=== PATIENT | female | born 1950 | race Caucasian/White ===

== ENCOUNTER → 2017-01-13 | Outpatient (CLI) | payer OTHER | LOC: CIMAGING 09:49 | DX: Z12.31 Encounter for screening mammogram for malignant neoplasm of breast (principal) | CPT/HCPCS: G0202 ==

== ENCOUNTER → 2017-01-19 | Outpatient (CLI) | payer OTHER | LOC: BRMIMAGING 14:48 | PROVIDERS: ATTEND Internal Medicine | DX: Z13.820 Encounter for screening for osteoporosis (principal); E20.9 Hypoparathyroidism, unspecified; C73 Malignant neoplasm of thyroid gland; Z78.0 Asymptomatic menopausal state; Z82.62 Family history of osteoporosis ==

== ENCOUNTER 2017-11-24 12:27 | Emergency (ER) | payer OTHER ==
[2017-11-24] MEDS ORDERED: ASPIRIN 81 MG CHEWABLE TAB PO ONE (12:40)
--- NOTE | 2017-11-24 12:55 | CPEKG ---
Heart Rate: 76 RR Interval: 789 P-R Interval: 156 QRSD Interval: 112 QT Interval: 424 QTC Interval: 477 P Redfield: -46 QRS Redfield: -24 T Wave Redfield: 37 EKG Severity - ABNORMAL ECG - EKG Impression: SINUS OR ECTOPIC ATRIAL RHYTHM EKG Impression: INCOMPLETE RBBB AND LAFB Electronically Signed By: Riley Gastelum 24-Nov-2017 15:35:59
[2017-11-24] MEDS ORDERED: HYOSCYAMINE SULFATE 0.125 MG TAB PO ONE (13:04)
[2017-11-24] MEDS ORDERED: MAG HYDROX/AL HYDROX/SIMETH 30 ML UDCUP PO ONE (13:04)
[2017-11-24 13:11] LABS: PLATELET COUNT 185 10^3/uL (150-400)
--- NOTE | 2017-11-24 14:35 | EDPHY ---
H & P Stated Complaint: palpitations since 1130 this am; pressure Time Seen by Provider: 11/24/17 12:40 HPI/ROS: This patient complains of chest discomfort. She explains that at 11:30 a.m. While at rest at work keyboard she had abrupt feeling of fleeting tightness in her chest that she had an experience before accompanied by a gurgling in her stomach. She states that it felt like a spasm or an extra heartbeat. She states that the peak intensity was 6/10 in this episode and that since then she has felt intermittent fleeting chest pains that do not last for more than a 2nd or 2 at a time. Nervous about a potential heart problem, she came in for evaluation by private vehicle for the symptoms. She does recall having these symptoms in the past. She does report increased belching recently in some intermittent GERD symptoms associated with her current symptoms. ROS: Constitutional: No fevers or chills. HEENT: No URI symptoms or other complaints pulmonary: No shortness of breath. She reports that she recently had a cough attributed to a cold that resolved over the past few days. No lingering cough. Cardiovascular: No lightheadedness. No leg swelling. GI: No nausea. Normal bowel movements. Positive increase in belching as noted in HPI. : No complaints integumentary: No diaphoresis or rash. No pallor. Neuro: No complaints. 10 point ROS is otherwise negative. Source: Patient Exam Limitations: No limitations - Personal History Current Tetanus/Diphtheria Vaccine: Yes - Medical/Surgical History Hx Asthma: No Hx Chronic Respiratory Disease: No Hx Diabetes: No Hx Cardiac Disease: No Hx Renal Disease: No Hx Cirrhosis: No Hx Alcoholism: No Hx HIV/AIDS: No Hx Splenectomy or Spleen Trauma: No Other PMH: HTN. Thyroid/parathyroid ectomy. oopherectomy. back surgery - Family History Significant Family History: No pertinent family hx - Social History Smoking Status: Former smoker Alcohol Use: Rarely Drug Use: None - Physical Exam Exam: General Appearance: Alert, no distress. Eyes: Pupils equal and round no pallor or injection. ENT, Mouth: Mucous membranes moist. Respiratory: There are no retractions, lungs are clear to auscultation. Cardiovascular: Regular rate and rhythm. No murmur gallop rub. No chest wall tenderness. Gastrointestinal: Abdomen is soft and nontender, no masses, bowel sounds normal. Neurological: GCS 15 Skin: Warm and dry, no rashes. Musculoskeletal: Neck is supple nontender. Extremities are symmetrical, full range of motion. Psychiatric: Mood and affect normal DIFFERENTIAL DIAGNOSIS: After history and physical exam differential diagnosis was considered for GERD with esophageal spasm, myocardial ischemic disease, pneumothorax, pneumonia, aortic aneurysm, aortic dissection Constitutional: Initial Vital Signs Temperature (C) 37 C 11/24/17 12:34 Heart Rate 84 11/24/17 12:34 Respiratory Rate 20 11/24/17 12:34 Blood Pressure 175/103 H 11/24/17 12:34 O2 Sat (%) 96 11/24/17 12:34 O2 Delivery Mode Room Air Allergies/Adverse Reactions: banana [Banana] Allergy (Verified 11/24/17 12:38) Vomiting Home Medications: Medication Instructions Recorded Calcitriol (*) 11/24/17 Hyoscyamine Sulfate [Levsin, 0.125 - 0.25 mg SL Q6 PRN #20 tab 11/24/17 Hyomax-Sl 0.125 mg (*)] Levothyroxine 11/24/17 Lexapro 11/24/17 Lisinopril 11/24/17 Pantoprazole Sodium [Protonix 40mg 40 mg PO DAILY #30 tab 11/24/17 (RX)] traZODone 11/24/17 Medical Decision Making - Diagnostics EKG Interpretation: 12 lead EKG performed at 12:53 p.m. Reveals sinus rhythm at 73 Intervals: P R of 156, QRS of 112, QTC of 477 [place]: P of -46, QRS of -24, T of 37 degrees Overall assessment sinus rhythm with incomplete right bundle-branch block and left anterior fascicular block Imaging Results: Two view chest x-ray: Normal by my interpretation Imaging: I viewed and interpreted images myself ED Course/Re-evaluation: IV, monitor, aspirin p.o. Maalox and Levsin with improvement in her symptoms. Studies: CBC is normal, troponin is normal, CMP & TSH normal Discussion: I suspect this patient's symptoms are attributable to GERD with some esophageal spasm. I counseled regarding this. Her symptoms improved with antacids Levsin here. Will plan to treat her with the same as an outpatient with follow up with primary care physician with Cardiology as an outpatient. She understands the need to return emergency department should she develop worsening symptoms despite the treatment plan. - Data Points Laboratory Results: Laboratory Results 11/24/17 13:08 11/24/17 13:08 Medications Given: Discontinued Medications Al Hydroxide/Mg Hydroxide (Maalox Susp) 30 ml PO EDNOW ONE Stop: 11/24/17 13:05 Last Admin: 11/24/17 13:30 Dose: 30 ml Aspirin (Aspirin) 324 mg PO EDNOW ONE Stop: 11/24/17 12:41 Last Admin: 11/24/17 12:48 Dose: 324 mg Hyoscyamine Sulfate (Levsin, Hyomax-Sl) 0.25 mg PO EDNOW ONE Stop: 11/24/17 13:05 Last Admin: 11/24/17 13:30 Dose: 0.25 mg Departure - Departure Disposition: Home, Routine, Self-Care Clinical Impression: Atypical chest pain, GERD (gastroesophageal reflux disease) Condition: Good Instructions: Chest Pain (ED), Diet for Stomach Ulcers and Gastritis (ED), Gastroesophageal Reflux Disease (ED) Additional Instructions: Diagnosis: 1. Atypical chest pain 2. Gastroesophageal reflux-likely with esophageal spasm Plan: Start Protonix acid carmen Maalox in addition if needed. Protonix will take a day or 2 to work. Levsin if needed for chest discomfort. Light diet to feel improved Follow up with primary care physician for recheck Also recommend follow up with cardiology-Dr. Thomas for further workup. Return for any significant worsening of her symptoms despite the treatment plan. Referrals: Pili Miles MD [Primary Care Provider] - As per Instructions Raina Thomas MD [Medical Doctor] - As per Instructions Prescriptions: Hyoscyamine Sulfate [Levsin, Hyomax-Sl 0.125 mg (*)] 0.125 - 0.25 mg SL Q6 PRN # 20 tab PRN Reason: abdominal cramping Pantoprazole Sodium [Protonix 40mg (RX)] 40 mg PO DAILY #30 tab
[2017-11-24 14:52] VITALS: BP 175/100
== END 2017-11-24 14:43 | disposition home or self-care (01) ==
LOC: CED 12:27
DX: R07.89 Other chest pain (principal); K21.9 Gastro-esophageal reflux disease without esophagitis; I10 Essential (primary) hypertension; Z87.891 Personal history of nicotine dependence
CPT/HCPCS: 71046-PO; 80048-PO; 84443-PO; 84484-PO

== ENCOUNTER → 2018-02-17 | Outpatient (CLI) | payer OTHER | LOC: CIMAGING 14:54 | PROVIDERS: ATTEND Internal Medicine | DX: Z12.31 Encounter for screening mammogram for malignant neoplasm of breast (principal) ==

== ENCOUNTER 2018-11-06 09:35 | Observation (INO) | payer OTHER ==
[2018-11-06] MEDS ORDERED: NS 1,000 ML IV ONE (10:19)
--- NOTE | 2018-11-06 10:26 | EDPHY ---
HPI/HX/ROS/PE/MDM Narrative: CHIEF COMPLAINT: Shortness of breath, cough HPI: The patient is a 68-year-old female with a history of hypertension. She states that she has felt "lousy" over the last week with cough productive of yellow-green sputum, body aches, sore throat and shortness of breath. This got acutely worse yesterday. She states that she checked her heart rate a number of times yesterday and found to be 120-130 beats per minute range. She denies measured fever. She denies chest pain. She did receive a flu shot this year. She states of a neighbor was recently diagnosed with strep throat. REVIEW OF SYSTEMS: Aside from elements discussed in the HPI, a comprehensive 10-point review of systems was reviewed and is negative. PMH: Includes high blood pressure, no history of coronary disease. SOCIAL HISTORY: Denies alcohol or drug abuse. PHYSICAL EXAM: General:Patient is alert, in no acute distress. She is well-appearing. ENT:Eyes are normal to inspection. ENT inspection normal. Neck: Normal inspection. Full range of motion. Respiratory:No respiratory distress. Breath sounds normal bilaterally. Cardiovascular: Regular rate and rhythm. Strong peripheral pulses. Normal cap refill. Abdomen:The abdomen is nontender to palpation. There are no peritoneal signs. There are normal bowel sounds. Back: Normal to inspection. No tenderness to palpation. Skin: Normal color. No rash. Warm and dry. Extremities: Normal appearance. Full range of motion. Neuro: Oriented x3. Normal motor function. Normal sensory function. MDM: This patient presents primarily with hypoxia in setting of viral-like symptoms. Her CXR is negative for PNA and her HR has improved. I do not think she has severe sepsis or septic shock. Patient remained hypoxic however, and as such admission is indicated. General Time Seen by Provider: 11/06/18 10:17 Initial Vital Signs: Initial Vital Signs Temperature (C) 37.0 C 11/06/18 09:38 Heart Rate 112 H 11/06/18 09:38 Respiratory Rate 20 11/06/18 09:38 Blood Pressure 168/100 H 11/06/18 09:38 O2 Sat (%) 88 L 11/06/18 09:38 O2 Delivery Mode Room Air O2 (L/minute) 2 Allergies/Adverse Reactions: banana [Banana] Allergy (Verified 11/24/17 12:38) Vomiting Home Medications: Medication Instructions Recorded Calcitriol 0.5 mcg PO DAILY@14 11/24/17 Escitalopram Oxalate [Lexapro] 20 mg PO DAILY@11/24/17 Levothyroxine [Synthroid 112 mcg 112 mcg PO DAILY06 11/24/17 (*)] Lisinopril [Zestril 20 mg (*)] 20 mg PO DAILY 11/24/17 traZODone [traZODONE 50MG (*)] 50 mg PO HS PRN 11/24/17 Calcium Carbonate [Oyster Shell 500 mg PO DAILY@11/06/18 Calcium 500 mg (*)] Herbals/Supplements -Info Only 1 ea PO DAILY 11/06/18 Multivitamins [Multivitamin (*)] 1 each PO DAILY 11/06/18 Departure - Departure Disposition: [facility] Acute Condition: Good
[2018-11-06 10:46] LABS: PLATELET COUNT 155 10^3/uL (150-400)
--- NOTE | 2018-11-06 13:23 | ASMTCMCOM ---
CM Note CM Note Notes: Pt seen by request for possibility of in home oxygen. After speaking with RT Faith, pt would have to pay out of pocket for in home oxygen. Pt. 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 She did not want to stay because he has no friends or family that would be able to provide care for her or her two dogs. Pt indicated that she was recently approved for a cpap and recognized that she needs to address the issue so she can feel better. She called her son to see if he could call his prior care provider to check in on him and the dogs. She expressed concern about length of stay for OBS and what will happen to her son if she needs to stay longer. In home oxygen may still be needed. DC needs TBD CM to continue to follow. Date Signed: 11/06/2018 01:23 PM Electronically Signed By:Oscar Mays LCSW
[2018-11-06] MEDS ORDERED: ACETAMINOPHEN 325 MG TAB PO PRN (14:02)
[2018-11-06] MEDS ORDERED: ONDANSETRON 4 MG/2 ML VIAL IVP PRN (14:02)
[2018-11-06] MEDS ORDERED: ONDANSETRON DISINTEGRATING 4 MG TAB PO PRN (14:02)
[2018-11-06] MEDS ORDERED: IBUPROFEN 200 MG TAB PO PRN (14:02)
[2018-11-06] MEDS ORDERED: ALBUTEROL 3 ML DEYVIAL IH PRN (14:02)
[2018-11-06] MEDS ORDERED: traZODone 50 MG TAB PO PRN (14:04)
--- NOTE | 2018-11-06 14:04 | PDGENHP ---
History and Physical - Chief Complaint shortness of breath, fast heart rate - History of Present Illness 68yo F with htn presents with 4-5 days of shortness of breath, cough productive of white sputum, fatigue. She had to call off work 3 times last weak. No fevers/ chills. She has been wheezing at home. She noticed that her HR was as high as 133 bpm at home yesterday. This concerned her. Her HR was still high today and she was having trouble catching her breath so she came in. Non-smoker. Some of her work colleagues have been sick. No chest pain or pleuritic pain. She did get a flu shot. In the ED, she was found to have O2 sats in the low 80s on room air. This improved with 2L supplemental oxygen. She is being admitted for management of hypoxia. History Information - Allergies/Home Medication List Allergies/Adverse Reactions: banana [Banana] Allergy (Verified 11/24/17 12:38) Vomiting Home Medications: Calcitriol 0.5 mcg PO DAILY@11/24/17 [Last Taken 11/05/18] Escitalopram Oxalate [Lexapro] 20 mg PO DAILY@11/24/17 [Last Taken 11/05/18] Levothyroxine [Synthroid 112 mcg (*)] 112 mcg PO DAILY06 11/24/17 [Last Taken ] Lisinopril [Zestril 20 mg (*)] 20 mg PO DAILY 11/24/17 [Last Taken 11/06/18] traZODone [traZODONE 50MG (*)] 50 mg PO HS PRN 11/24/17 [Last Taken Unknown] Calcium Carbonate [Oyster Shell Calcium 500 mg (*)] 500 mg PO DAILY@11/06/18 [Last Taken 11/05/18] Herbals/Supplements -Info Only 1 ea PO DAILY 11/06/18 [Last Taken Unknown] Multivitamins [Multivitamin (*)] 1 each PO DAILY 11/06/18 [Last Taken Unknown] I have personally reviewed and updated: family history, medical history, social history, surgical history - Past Medical History Additional medical history: hypertension, thyroid cancer, iatrogenic hypothyroidism and hypoparathyroidism, depression - Surgical History Additional surgical history: thyroidectomy and parathyroidectomy, ovarian cyst removal - Family History Positive for: non-pertinent - Social History Smoking Status: Former smoker Review of Systems Review of Systems: ROS: 10pt was reviewed & negative except for what was stated in HPI & below Physical Exam Physical Exam: Temp Pulse Resp BP Pulse Ox 37.0 C 88 18 136/89 H 94 11/06/18 09:38 11/06/18 13:46 11/06/18 13:46 11/06/18 13:46 11/06/18 13:46 O2 (L/minute) 2 Constitutional: no apparent distress, appears nourished, not in pain Eyes: PERRL, anicteric sclera, EOMI Ears, Nose, Mouth, Throat: moist mucous membranes, hearing normal, ears appear normal, no oral mucosal ulcers Cardiovascular: regular rate and rhythym, no murmur, rub, or gallop, No edema Respiratory: no respiratory distress, reduced air movement, No expiratory wheeze , No rhonchi Gastrointestinal: normoactive bowel sounds, soft, non-tender abdomen, no palpable masses Genitourinary: no bladder fullness, no bladder tenderness Skin: warm, normal color, no rashes or abrasions, no fluctuance, no induration, No mottled Musculoskeletal: full muscle strength, no muscle tenderness, normal joint ROM, no joint effusions Neurologic: AAOx3 Psychiatric: interacting appropriately Lab Data & Imaging Review 11/06/18 10:30 11/06/18 10:30 WBC 14.57 10^3/uL (3.80-9.50) H 11/06/18 10:30 RBC 4.42 10^6/uL (4.18-5.33) 11/06/18 10:30 Hgb 15.0 g/dL (12.6-16.3) 11/06/18 10:30 Hct 44.6 % (38.0-47.0) 11/06/18 10:30 MCV 100.9 fL (81.5-99.8) H 11/06/18 10:30 MCH 33.9 pg (27.9-34.1) 11/06/18 10:30 MCHC 33.6 g/dL (32.4-36.7) 11/06/18 10:30 RDW 13.1 % (11.5-15.2) 11/06/18 10:30 Plt Count 155 10^3/uL (150-400) 11/06/18 10:30 MPV 10.6 fL (8.7-11.7) 11/06/18 10:30 Neut % (Auto) 91.3 % (39.3-74.2) H 11/06/18 10:30 Lymph % (Auto) 3.6 % (15.0-45.0) L 11/06/18 10:30 [place] % (Auto) 3.6 % (4.5-13.0) L 11/06/18 10:30 Eos % (Auto) 0.3 % (0.6-7.6) L 11/06/18 10:30 Baso % (Auto) 0.1 % (0.3-1.7) L 11/06/18 10:30 Nucleat RBC Rel Count 0.0 % (0.0-0.2) 11/06/18 10:30 Absolute Neuts (auto) 13.30 10^3/uL (1.70-6.50) H 11/06/18 10:30 Absolute Lymphs (auto) 0.52 10^3/uL (1.00-3.00) L 11/06/18 10:30 Absolute Monos (auto) 0.52 10^3/uL (0.30-0.80) 11/06/18 10:30 Absolute Eos (auto) 0.04 10^3/uL (0.03-0.40) 11/06/18 10:30 Absolute Basos (auto) 0.01 10^3/uL (0.02-0.10) L 11/06/18 10:30 Absolute Nucleated RBC 0.00 10^3/uL (0-0.01) 11/06/18 10:30 Immature Gran % 1.1 % (0.0-1.1) 11/06/18 10:30 Immature Gran # 0.16 10^3/uL (0.00-0.10) H 11/06/18 10:30 RBC/WBC/PLT Morphology TNP 11/06/18 10:30 Platelet Estimate TNP 11/06/18 10:30 VBG Lactic Acid 1.3 mmol/L (0.7-2.1) 11/06/18 10:30 Sodium 137 mEq/L (135-145) 11/06/18 10:30 Potassium 3.6 mEq/L (3.5-5.2) 11/06/18 10:30 Chloride 103 mEq/L (97-110) 11/06/18 10:30 Carbon Dioxide 22 mEq/l (22-31) 11/06/18 10:30 Anion Gap 12 mEq/L (6-14) 11/06/18 10:30 BUN 9 mg/dL (7-23) 11/06/18 10:30 Creatinine 0.6 mg/dL (0.6-1.0) 11/06/18 10:30 Estimated GFR > 60 11/06/18 10:30 Glucose 115 mg/dL (70-100) H 11/06/18 10:30 Calcium 8.5 mg/dL (8.5-10.4) 11/06/18 10:30 Nasal Influenza A PCR NEGATIVE FOR FLU A (NEGATIVE) 11/06/18 10:10 Nasal Influenza B PCR NEGATIVE FOR FLU B (NEGATIVE) 11/06/18 10:10 RSV (PCR) NEGATIVE FOR RSV (NEGATIVE) 11/06/18 10:10 Group A Strep Screen NEGATIVE (NEGATIVE) 11/06/18 10:10 Interpretation: CXR: normal heart size, no focal infiltrate or effusion, bronchial wall thickening, no pulmonary vascular congestion Assessment & Plan Assessment: 68yo F with htn presents with 4-5 days of shortness of breath, cough productive of white sputum, fatigue found to be hypoxic. Plan: #Acute hypoxia: Suspect has viral bronchitis. Flu and RSV negative. - Schedule duonebs, cough suppressants - Wean O2 as able - If not improving, consider CTA chest to eval for PE #Intermittent tachycardia: Likely driven by hypoxia. No longer tachycardic here. #Leukocytosis: Reactive from viral process. She is not septic. #Macrocytosis: She is not anemic. Check B12, folate levels. #Hypoparathyroidism: Calcium level wnl. Continue calcitriol. #Hypothyroidism: Continue LT4 replacement. #HTN: BP mildly elevated on admit, now normal. Continue home meds. VTE ppx: SCDs Code: Full Diet: regular Dispo: Admit under observation
[2018-11-06] MEDS ORDERED: guaiFENesin 600 MG TAB.ER PO PRN (14:56)
[2018-11-06] MEDS ORDERED: BENZONATATE 100 MG CAP PO PRN (14:56)
[2018-11-06] MEDS: ESCITALOPRAM OXALATE 10 MG TAB PO SCH (15:56)
[2018-11-06] MEDS: CALCIUM CARBONATE 500 MG TAB PO SCH (15:56)
[2018-11-06] MEDS: CALCITRIOL 0.25 MCG CAP PO SCH (15:56)
[2018-11-06] MEDS: IPRATROPIUM/ALBUTEROL 3 ML DEYVIAL IH SCH ×2 (16:23→22:52)
[2018-11-07] MEDS: IPRATROPIUM/ALBUTEROL 3 ML DEYVIAL IH SCH ×3 (00:06→11:43)
[2018-11-07 05:16] LABS: PLATELET COUNT 139 10^3/uL (150-400)
[2018-11-07] MEDS ORDERED: LEVOTHYROXINE 112 MCG TAB PO SCH (06:00)
--- NOTE | 2018-11-07 08:47 | PDHOMEO2F ---
Home Oxygen Face to Face Home Orders: I certify that a physician or a nurse practitioner or physician's music assistant has had a [id number] encounter with this patient on the date of this order due to the diagnosis listed, which relates to the primary reason the patient requires home oxygen. Alternative treatments have been tried, or considered, and deemed ineffective. It is anticipated that supplemental oxygen will result in improvement with treatment. Home oxygen qualifying diagnosis: respiratory failure with hypoxia SpO2 on room air (%): 82 Frequency of home oxygen needed: continuous Home oxygen liters per minute: 2 Home oxygen delivery device: nasal cannula Concentrator: Yes E-tanks for mobility and back up: Yes If ordering portable O2, is the patient mobile in the home?: Yes I certify that, based on these findings, the home oxygen is medically necessary for this patient for the following length of time. Length of time home oxygen needed: 1 month
[2018-11-07] MEDS ORDERED: LISINOPRIL 20 MG TAB PO SCH (09:00)
[2018-11-07] MEDS ORDERED: IOPAMIDOL (ISOVUE 370) 100 ML BTL IV ONE (12:21)
[2018-11-07 12:34] VITALS: BP 149/97
[2018-11-07] MEDS: CALCITRIOL 0.25 MCG CAP PO SCH (14:00)
[2018-11-07] MEDS: ESCITALOPRAM OXALATE 10 MG TAB PO SCH (14:00)
[2018-11-07] MEDS: CALCIUM CARBONATE 500 MG TAB PO SCH (14:00)
--- NOTE | 2018-11-07 14:41 | PDDCSUM ---
Discharge Summary Discharge Summary: Date of Admission: 11/06/2018 Date of Discharge: 11/07/2018 Studies: CXR, CTA chest Discharge Diagnoses: 1. Acute hypoxia 2. Viral bronchitis 3. SIRS (leukocytosis, tachycardia), resolved 4. Macrocytosis 5. 15mm enhancing liver lesion 6. Hypoparathyroidism 7. Hypothyroidism 8. HTN Brief Hospital Course: 68yo F with htn presented with 4-5 days of shortness of breath, cough productive of white sputum, sore throat, fatigue, and increased HR (noted to be in 130s at home). She was found to be hypoxic into the low 80s on room air. Influenza and RSV testing was negative. CXR without pneumonia but did show airways disease. A CTA of her chest was performed and negative for PE. I suspect her symptoms are due to a viral process. She was treated with bronchodilators with symptomatic improvement and is no longer wheezing. She was still requiring 2L of supplemental oxygen at discharge. Of note, a 15mm enhancing liver lesion was noted on CT; consider outpatient imaging to further evaluate. Medications: Please refer to EMR for complete list. No changes were made this admission. Follow Up Plan: 1. PCP visit in 7-10 days 2. Wean O2 as able 3. Consider abdominal US or MRI to evaluate liver lesion Physical Exam: Vitals reviewed, afebrile. Alert and oriented, rrr, lungs with diminished breath sounds but no wheezes, abdomen soft, no leg edema, no JVD, no rashes.
--- NOTE | 2018-11-07 14:51 | ASMTLACE ---
LACE Length of stay for Answers: Less than 1 day current admission Acuity / Level of Answers: No Care: Did the patient have an inpatient admission? Comorbidities - select Answers: Chronic pulmonary disease all that apply # of Emergency department Answers: 1-2 visits in the last 6 months Score: 3 Date Signed: 11/07/2018 02:50 PM Electronically Signed By:Jessica Collier RN
== END 2018-11-07 16:30 | disposition home or self-care (01) ==
LOC: F3N 14:29
PROVIDERS: ADMIT Internal Medicine; ATTEND Internal Medicine
DX: R09.02 Hypoxemia (principal); J20.8 Acute bronchitis due to other specified organisms; D75.89 Other specified diseases of blood and blood-forming organs; K76.9 Liver disease, unspecified; E20.9 Hypoparathyroidism, unspecified; E03.2 Hypothyroidism due to medicaments and other exogenous substances; I10 Essential (primary) hypertension
CPT/HCPCS: 71046; 71275; G0378; 82607-90; Q9967

== ENCOUNTER → 2018-11-16 | Outpatient (CLI) | payer OTHER | LOC: CIMAGING 08:08 | PROVIDERS: ATTEND Internal Medicine | DX: K76.0 Fatty (change of) liver, not elsewhere classified (principal); K76.89 Other specified diseases of liver; R16.0 Hepatomegaly, not elsewhere classified | CPT/HCPCS: 76705-PO ==

== ENCOUNTER → 2018-11-23 | Outpatient (CLI) | payer OTHER | LOC: FIMAGING 11:52 | PROVIDERS: ATTEND Internal Medicine | DX: R06.02 Shortness of breath (principal); R09.02 Hypoxemia; J40 Bronchitis, not specified as acute or chronic ==

== ENCOUNTER → 2018-11-25 | Outpatient (CLI) | payer OTHER ==
[~2018-11-25] MED LIST: GADOBUTROL 10 ML VIAL IVP ONE
== END ==
LOC: FIMAGING 13:46
PROVIDERS: ATTEND Internal Medicine
DX: K76.9 Liver disease, unspecified (principal); N28.1 Cyst of kidney, acquired
CPT/HCPCS: A9585

== ENCOUNTER → 2019-02-17 | Outpatient (CLI) | payer OTHER | LOC: CLAB 14:57 ==